=== PATIENT | female | born 1950 | race Caucasian/White ===

== ENCOUNTER → 2016-12-21 | Outpatient (CLI) | payer OTHER, MEDICARE ==
[~2016-12-21] MED LIST: FMR25 PO; LEVO100T7 PO
--- NOTE | 2016-12-21 12:44 | MAMMOGRAPHY REPORT ---
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 TECHNIQUE: Breast tomosynthesis in addition to standard 2D mammography was performed. Current study was also evaluated with a Computer Aided Detection (CAD) system. Right CC and MLO 2-D and tomosynt hesis images and spot magnification right cc and ML views were obtained. COMPARISON: Comparison is made to exams dated: 06/20/2016 mammogram, 06/06/2015 mammogram, 06/02/2014 ma mmogram, 06/01/2013 mammogram, and 06/03/2012 mammogram - [facility]. BREAST COMPOSITION: The tissue of the right breast is extremely dense, which lowers the sensitivity of mammography. FINDINGS: There are new post surgical changes in the right central breast, with new architectural d istortion and surgical clips noted at the lumpectomy bed. There is mild diffuse right breast skin t hickening, likely a sequela of radiation therapy. Scattered and clustered benign-appearing calcific ations in the right breast are stable compared to multiple prior exams. Small cluster of calcificat ions in the right upper outer quadrant lateral to the lumpectomy bed and small cluster of benign julianna earing calcifications in the right lower inner quadrant medial to the lumpectomy bed have been seen on prior exams dating back to 2009, and are considered benign given long-term stability. No new mas ses or suspicious clusters of micro calcifications are seen. Asymmetries in the right upper outer q uadrant posteriorly are also stable. IMPRESSION: ACR-BI-RADS CATEGORY 3: PROBABLY BENIGN Expected post treatment changes in the right breast, without mammographic evidence of malignancy in the right breast. Recommend bilateral diagnostic tomosynthesis mammograms in 6 months, to reevaluat e the right breast postsurgical changes and for routine mammography of the left breast. The patient has been verbally notified of the results. Approximately 10% of breast cancers are not detected with mammography. A negative mammographic repor t should not delay biopsy if a clinically suggestive mass is present. Jenise Fermin M.D. ah/:12/21/2016 10:44:06 Sales Office Assistant: Nenita MAZA)(Maryan), [facility] letter sent: Personal History 3 BI-RADS Code: ACR-BI-RADS Category 3: Probably Benign
== END | disposition home or self-care (01) ==
LOC: C.MAMM 08:36
PROVIDERS: ATTEND Radiology Radiation Oncology
DX: C50.911 Malignant neoplasm of unspecified site of right female breast (principal)

== ENCOUNTER → 2017-04-16 | Outpatient (CLI) | payer OTHER, MEDICARE ==
[2017-04-16 13:43] VITALS: BP_SYST 161; BP_SYST 198; BP_DIAS 141; BP_DIAS 90; PULSE 78; TEMP 37; O2SAT 98
--- NOTE | 2017-04-16 19:45 | Radiation Oncology Follow-Up ---
Radiation Oncology Follow-Up Date of Visit April 16, 2017. Reason For Visit The patient returns for regular scheduled 6 month follow-up visit. Radiation Completion Date 09/04/16 History of Present Illness Ms. Chowdary is a 66-year-old female without a family history of breast cancer. She has been followed with screening mammograms. In June 2015 screening mammograms were unremarkable. On 06/11/2016 the patient underwent bilateral digital screening mammogram with CAD. This showed a possible increasing cluster of microcalcifications at the 11:00 middle one third of the right breast. Additional spot magnification views were recommended. On 06/14/2016 patient underwent unilateral right digital diagnostic mammogram. This demonstrated a small, 3 mm cluster of punctate and round calcifications in the right upper outer quadrant. These calcifications appeared to have slightly increased compared to prior exams. The calcifications did appear similar to other Clusters seen within both breasts which is been stable. Although these calcifications were likely to be benign given the interval increase a stereotactic biopsy was recommended. This was given a BI-RADS Category 4A with low suspicion of malignancy. The patient agreed and was scheduled for a stereotactic biopsy of the right breast on 06/20/2016. This revealed a high-grade DCIS. Estrogen receptors were positive (100%, strong intensity). Progesterone receptors were positive ( greater than 95%, strong intensity). The DCIS measured up to 0.3 cm in greatest dimension. Case: [id number]. Patient was seen by Dr. Lambert Dykes. He discussed treatment options with the patient. The decision was made to proceed with breast conserving therapy. Therefore on 07/11/2016 patient underwent a right breast partial mastectomy and sentinel node biopsy. 2 sentinel nodes were identified and both were negative. The lumpectomy specimen revealed no residual DCIS. Additional right superior and inferior tissue were also negative for carcinoma. Case: [id number]. The final pathologic stage was therefore Tis pN0(sn-), ER positive and WA positive. Patient was seen by Dr. Lund for evaluation and discussion of the role of adjuvant systemic therapy. He recommended adjuvant antiestrogen therapy. We were also asked to see the patient in referral. She underwent a CT simulation was found to be a candidate for accelerated partial breast irradiation. Her treatment was completed 09/04/2016. She received 3850 cGy. She returned for a follow-up visit one month post treatment.She's been doing well over the past month. The irritation of the skin steadily resolved without difficulty. She had some dryness of the skin and hyperpigmentation following treatment. This steadily improved. For the dryness of the skin and she was given Aquaphor. She was seen by medical oncology and is now on Femara. She is tolerating this well and denies any side effects. Initially she had some problems with insomnia but this resolved. She is not having any problems with joint pains or arthralgias. She has been doing some painting and was concerned about small amount of arm swelling. This was reviewed and her prior measurements were compared. These are similar to previous. She has noticed no masses of the breast. She has no tenderness or change of the axilla. She is currently scheduled for her regular yearly screening mammogram. Interim History Patient was last seen on 10/16/2016. She started her Letrozole in mid to late September. She took it for approximately 4 months and stopped it on January 29. This was due to increasing symptoms. The symptoms have improved since stopping the medication. The patient notices occasional tightness in the right breast at the treatment location. She denies any breast soreness or tenderness. She denies any arm edema or swelling. She is scheduled for a repeat mammogram on 06/20/2006 17 and is scheduled to see Dr. Lund in follow-up on 06/21/2017. She has not yet notified Dr. Lund's office that she has stopped her medication. I've encouraged her to do that. Allergies Coded Allergies: Erythromycin (Verified Allergy, Unknown, HIVES, 08/02/16) Macrolides and Ketolides (Verified Allergy, Unknown, rash, 07/11/16) Tetracycline (Verified Allergy, Unknown, RASH/HIVES, 07/11/16) Home Medications Scheduled Levothyroxine Sodium (Levothyroxine Sodium), 1 TAB PO QAM Review of Systems Gastrointestinal: Symptoms: WNL Oral: Symptoms: No Problems Respiratory: Symptoms: WNL Other Respiratory: Currently Smoking --> 7-8cigs/day Urinary: Symptoms: WNL Skin: Symptoms: No Problems Other Skin Symptoms: Tightness of skin in AM's gets better as day goes on Breast: Right Upper Arm Measurement: 24.6 Right Mid Arm Measurement: 21.1 Right Wrist Measurement: 14.7 Left Upper Arm Measurement: 25.5 Left Mid Arm Measurement: 21.0 Left Wrist Measurement: 14.8 Arm Dominence: Right Physical Exam Vital Signs Date Time Temp Pulse Resp B/P Pulse Ox O2 Delivery O2 Flow Rate FiO2 04/16/17 13:43 37.0 78 18 198/90 98 161/141 General Appearance: WD/WN, no apparent distress Eyes: normal inspection ENT: normal ENT inspection Neck: supple, no adenopathy Respiratory/Chest: chest non-tender, lungs clear, normal breath sounds Breast: Breast examination shows a well-healed upper-outer quadrant incision in the right breast. There are no palpable masses no skin changes, specifically no skin edema and no pigment change. There are no palpable right breast tenderness. There is no right axillary adenopathy. Using the Vantage cosmesis score she has a good to excellent outcome. Left breast shows no palpable masses or skin changes or axillary adenopathy. Cardiovascular: regular rate, rhythm, no murmur Abdomen: non tender, soft Extremities: normal range of motion Neurologic/Psychiatric: alert, normal mood/affect, oriented x 3 Skin: normal color Lymphatic: no adenopathy Assessment & Plan This patient is now 6 months post treatment. She is scheduled to see Dr. Rohith Dempsey in June. We will see the patient in one year's time or sooner if requested. She is scheduled for a diagnostic mammogram on 06/20/2017. Total Time In Follow-Up I spent 15 minutes in discussion and examination with the patient and 5 minutes in preparation of this document. Copy To Lambert Dykes M.D.; Luis F Lund MD; Sandoval Trinh M.D.
== END | disposition home or self-care (01) ==
LOC: C.ONC 13:37
PROVIDERS: ATTEND Physician Assistant Medical
DX: Z08 Encounter for follow-up examination after completed treatment for malignant neoplasm (principal); Z92.3 Personal history of irradiation; Z85.3 Personal history of malignant neoplasm of breast; Z80.3 Family history of malignant neoplasm of breast

== ENCOUNTER → 2017-05-10 | Outpatient (CLI) | payer OTHER, MEDICARE ==
[~2017-05-10] MED LIST changes: -FMR25 PO
[2017-05-10 17:32] LABS: CHOLESTEROL/HDL RATIO 3.1
== END | disposition home or self-care (01) ==
LOC: C.LABBFT 11:02
PROVIDERS: ATTEND Physician Assistant Medical
DX: I10 Essential (primary) hypertension (principal)

== ENCOUNTER → 2017-06-14 | Outpatient (CLI) | payer OTHER, MEDICARE ==
[2017-06-14 16:38] LABS: BLOOD UREA NITROGEN 9 mg/dl (7-18); BUN/CREATININE RATIO 9.8 (10-20); CALCIUM 8.8 mg/dl (8.5-10.1); CARBON DIOXIDE 28 mmol/L (21-32); CHLORIDE 105 mmol/L (98-107); CREATININE 0.96 mg/dl (0.60-1.20); GLUCOSE 113 mg/dl (70-99); POTASSIUM 3.6 mmol/L (3.5-5.1); SODIUM 139 mmol/L (136-145)
== END | disposition home or self-care (01) ==
LOC: C.LABBFT 12:44
PROVIDERS: ATTEND Physician Assistant Medical
DX: E03.9 Hypothyroidism, unspecified (principal); I10 Essential (primary) hypertension

== ENCOUNTER → 2017-06-20 | Outpatient (CLI) | payer OTHER, MEDICARE ==
--- NOTE | 2017-06-20 15:42 | MAMMOGRAPHY REPORT ---
BILATERAL DIGITAL DIAGNOSTIC MAMMOGRAM TOMOSYNTHESIS WITH CAD: 06/20/2017 CLINICAL HISTORY: 67-year-old woman with a personal history of right breast DCIS status post breast c onservation therapy. She presents for second close follow-up after treatment and also time of annual bilateral screening exam. TECHNIQUE: Bilateral CC and MLO 2-D and tomosynthesis images, spot magnification right CC and ML view s were obtained. Current study was also evaluated with a Computer Aided Detection (CAD) system. COMPARISON: Comparison is made to exams dated: 12/21/2016 mammogram, 07/11/2016 specimen, 07/11/2016 lo calization, 06/20/2016 stereotactic biopsy, 06/20/2016 mammogram, and 06/14/2016 mammogram - [facility]. BREAST COMPOSITION: The tissue of both breasts is extremely dense, which lowers the sensitivity of m ammography. FINDINGS: Linear scar markers overlie each breast. There is expected architectural distortion in the upper outer anterior right breast, at the site of prior lumpectomy. 2 surgical clips remain in plac e. There is mild diffuse skin thickening and trabecular edema of the right breast. Stable nodular a symmetries in the right upper outer quadrant. On the spot magnification views of the right breast, t here are 2 tiny groupings of round and punctate microcalcifications located slightly lateral and medi al to the surgical clips on the CC view. These are stable comparing to the spot magnification views obtained 12/21/2016, and likely have been present on prior full-field views dating back to at least 2 014. However, repeat attention at follow-up in 6 months is recommended to ensure longer stability. There are other benign-appearing calcifications scattered bilaterally. No new focal area of architec tural distortion, spiculated or irregular mass or new calcifications are identified. IMPRESSION: ACR-BI-RADS CATEGORY 3: PROBABLY BENIGN 1. Expected post-therapeutic changes in the right breast, and stable mammographic appearance of the left breast, without definite mammographic evidence of malignancy. Recommend repeat diagnostic mammo grams and possible ultrasound of the right breast, to ensure longer stability after treatment. Routi ne mammography of the left breast in 12 months. 2. Given the extremely dense breasts and personal history of right breast cancer, would also recomme nd additional surveillance with bilateral breast MRI. These results and recommendations were discussed with the patient at the time of the exam. Approximately 10% of breast cancers are not detected with mammography. A negative mammographic report should not delay biopsy if a clinically suggestive mass is present. Shanae Lemus M.D. ay/:06/20/2017 14:10:24 Reed Repairer: Jade Mathews, [facility] letter sent: Follow Up Recommended 3 BI-RADS Code: ACR-BI-RADS Category 3: Probably Benign
== END | disposition home or self-care (01) ==
LOC: C.MAMM 10:28
PROVIDERS: ATTEND Physician Assistant Medical
DX: Z12.31 Encounter for screening mammogram for malignant neoplasm of breast (principal); N64.89 Other specified disorders of breast

== ENCOUNTER → 2017-07-01 | Outpatient (CLI) | payer OTHER, MEDICARE ==
[~2017-07-01] MED LIST changes: +GADAVIST IV PRN; +LIDO/EPINEPHRINE/SOD BICARB 20 ML VIAL INFIL ONE
--- NOTE | 2017-07-02 13:10 | MAMMOGRAPHY REPORT ---
BREAST MRI OF BOTH BREASTS : 07/01/2017 CLINICAL HISTORY: 67-year-old woman with a personal history of right breast DCIS status post breast c onservation treatment. Also history of prior left breast surgery. Extremely dense breasts, patient presents for additional screening. COMPARISON: Comparison is made to exams dated: 12/21/2016 mammogram, 07/11/2016 specimen, 07/11/2016 lo calization, 06/20/2016 stereotactic biopsy, 06/20/2016 mammogram, and 06/14/2016 mammogram - [facility]. TECHNIQUE: Using a 1.5 Fouzia magnet and dedicated breast coil, multisequence axial images were obtain ed through the breasts. After uneventful IV administration of 5.5 mL of Gadavist, dynamic multiphase contrast-enhanced axial images, and sagittal postcontrast were obtained. Temporal subtraction axial images and 3-D MIP images are provided. Everything was then reviewed on a 3-D workstation, [employer]. FINDINGS: Right breast: There are foci of susceptibility artifact, architectural distortion and skin irregulari ty in the 8:00 through 10:00 axes of the right breast, at the site of prior lumpectomy. There is min imal background parenchymal enhancement of the right breast. There is a vague 4 x 3 x 3 mm enhancing focus in the upper outer posterior right breast approximately 11:00 axis with associated plateau and washout kinetics, T2 hyperintense (axial page 47/116 and sagittal page 94/116). A similar appearing , slightly larger circumscribed ovoid enhancing focus in the 9:00 far posterior right breast measures 6 x 4 x 4 mm, demonstrating mixed persistent, plateau and washout kinetics. This is also T2 hyperin tense and best seen on axial page 63 and sagittal page 97. Although these enhancing foci could repre sent benign processes, given the personal history of right breast DCIS, further characterization with targeted second look ultrasound and possible ultrasound-guided core biopsy is recommended. A second ultrasound is unyielding, MRI guided biopsy of the larger focus in the 9:00 axis is recommended. No other suspicious enhancing mass, non-mass enhancement or unexpected architectural distortion is seen in the right breast. There is mild diffuse skin thickening, likely related to prior treatment. No suspicious right axillary, subpectoral or internal mammary lymphadenopathy. Left breast: There are foci of susceptibility artifact in the 3:00 to 4:00 posterior left breast, den oting an area of prior surgery. There is minimal background parenchymal enhancement and mild benign duct ectasia. No suspicious enhancing mass, non-mass enhancement, architectural distortion or suspic ious kinetics are seen in the left breast. There is no skin thickening or nipple retraction. No shashi picious left axillary, subpectoral or intramammary lymphadenopathy. Other: Although the exam is not optimized to evaluate thoracic structures, the ascending thoracic aor ta appears prominent in size, and measures up to 3.7 mm. In retrospect, comparing to a CT scan perfo rmed prior to radiation therapy dated 08/08/2016 also measures slightly prominent in size. Consider dedicated aortic evaluation with an echocardiogram. IMPRESSION: ACR BI-RADS CATEGORY 4B: INTERMEDIATE SUSPICION FOR MALIGNANCY 1. There are 2 enhancing foci in the posterior right breast approximately 9:00 and 11:00 axes, measu ring 6 and 4 mm, respectively. Targeted second look ultrasound with possible ultrasound-guided core biopsy is recommended. If second look ultrasound is unyielding, MRI guided biopsy of the larger focu s in the 9:00 axis is recommended (45 minutes). 2. Otherwise there are expected post treatment changes in the right breast, without evidence of susp icious axillary lymphadenopathy. 3. No MRI evidence of malignancy in the left breast. 4. Mildly prominent ascending thoracic aorta measuring up to 3.7 cm. As this exam is not optimized to evaluate intrathoracic structures, measurements may not be completely accurate. Consider more def initive evaluation with an aortic/cardiac echo. The patient will be called to schedule an appointment. Shanae Lemus M.D. ay/:07/01/2017 17:03:03 Prisoner Classification Interviewer: flat lock operator, [facility] letter sent: Abnormal 4/5 BI-RADS Code: ACR BI-RADS Category 4B: Intermediate Suspicion For Malignancy
== END | disposition home or self-care (01) ==
LOC: C.MRI 13:40
PROVIDERS: ATTEND Physician Assistant Medical
DX: D05.11 Intraductal carcinoma in situ of right breast (principal); R92.8 Other abnormal and inconclusive findings on diagnostic imaging of breast; R93.8 Abnormal findings on diagnostic imaging of other specified body structures

== ENCOUNTER → 2017-07-10 | Outpatient (CLI) | payer OTHER, MEDICARE ==
[~2017-07-10] MED LIST changes: -GADAVIST IV PRN; -LIDO/EPINEPHRINE/SOD BICARB 20 ML VIAL INFIL ONE
--- NOTE | 2017-07-10 15:19 | MAMMOGRAPHY REPORT ---
ULTRASOUND OF RIGHT BREAST: 07/10/2017 CLINICAL HISTORY: 67 year old woman with a personal history of right breast DCIS diagnosed in June 20, status post breast conservation therapy. She recently presented for a breast MRI for additional screening and was found to have 2 subcentimeter enhancing foci/masses in the far posterior 9:00 and 1 1:00 axes of the right breast. She presents for targeted second ultrasound, possible ultrasound guid ed core biopsy. COMPARISON: Comparison is made to exams dated: 12/21/2016 mammogram, 07/11/2016 specimen, 07/11/2016 lo calization, 06/20/2016 stereotactic biopsy, 06/20/2016 mammogram, and 06/11/2016 mammogram - [facility]. FINDINGS: Real-time high-resolution sonographic evaluation was performed in the right breast with par ticular attention to the 9:00 and 11:00 as well as retroareolar axis of the breast. In the 9:[address] periareolar region, angular hypoechoic scar tissue is identified, denoting the site of prior lumpe ctomy. Deep to the scar, there is no evidence of a discrete mass to correlate with the 6 mm enhancin g focus/mass seen on the recent breast MRI. Likewise, no discrete solid or cystic mass is seen in th e 11:00 right breast to correspond to the smaller 4 mm enhancing focus seen on MRI. These enhancing foci/masses remain indeterminate and further evaluation with an MRI guided biopsy is recommended. Can attempt a biopsy of both lesions, although the smaller 4 mm lesion may not be david ble to MRI guided biopsy given the far posterior location close to pectoralis muscle. These new recommendations were discussed with the patient at the time of second look ultrasound on . She tentatively scheduled the MRI guided biopsy/biopsies prior to leaving our department. IMPRESSION: ACR BI-RADS CATEGORY 4B: INTERMEDIATE SUSPICION FOR MALIGNANCY - FOLLOW-UP RECOMMENDED 1. Targeted second look ultrasound in the right 9:00 and 11:00 axes fails to demonstrate a sonograph ic correlate for the small enhancing 6 mm and 4 mm foci identified on recent MRI. Therefore these fi ndings remain indeterminate and further evaluation with an MRI guided biopsy is recommended. Biopsy of both lesions can be attempted but there is a possibility the smaller focus in the 11:00 far template layout worker ior breast may not be amenable to MRI guided biopsy. These results and recommendations were discussed with the patient at the time of the exam. She tenta tively scheduled the MRI biopsy prior to leaving our department. Shanae Lemus M.D. ay/:07/10/2017 12:49:59 Shell Mold Bonding Machine Operator: Dr. Shanae Lemus, [facility] letter sent: Abnormal 4/5 BI-RADS Code: ACR BI-RADS Category 4B: Intermediate Suspicion For Malignancy
== END | disposition home or self-care (01) ==
LOC: C.MAMM 10:45
PROVIDERS: ATTEND Physician Assistant Medical
DX: Z85.3 Personal history of malignant neoplasm of breast (principal); R92.8 Other abnormal and inconclusive findings on diagnostic imaging of breast

== ENCOUNTER → 2017-07-17 | Outpatient (CLI) | payer OTHER, MEDICARE ==
[~2017-07-17] MED LIST changes: +LIDO/EPINEPHRINE/SOD BICARB 20 ML VIAL INFIL ONE; +XYLOCAINE 1%/SOD BICARB 20 ML VIAL INFIL ONE
--- NOTE | 2017-07-17 12:07 | Discharge Instructions ---
Discharge Instructions Procedure Procedure Date: Jul 17, 2017. Reason for visit: Right 2 Enhancing Masses. Discharge Discharge Date: Jul 17, 2017. Discharge Diagnosis: status post breast biopsy Instructions Activity Recommendations: Additional Limitations (see below) Return to School/Work: no limitations Recommended Home Diet: No Limitations Provider Instructions: ACTIVITY RECOMMENDATIONS: * No lifting, pushing, pulling or exercising the affected side for three days. RETURN TO SCHOOL/WORK: * You may return to work/school after the procedure, but do not perform any strenuous activities for 24 to 48 hours. MEDICATIONS: * Tylenol (two 325 mg) every four to six hours if needed for mild pain (if not allergic to Tylenol). DIET: * Resume previous diet. SPECIAL CARE INSTRUCTIONS: * Keep biopsy site dry for 24 hours. May shower after 24 hours, but do not soak (bathe) incision. * May remove Tegaderm (plastic patch) tomorrow AFTER showering. * Leave the steri-strips on for one week. Allow the steri-strips to fall off by themselves. If not off after one week, you may remove them. You may place a Bandaid crosswise over the strips, if desired. * Apply ice 10 minutes on and 10 minutes off as needed. * Wear a bra at bedtime to sleep more comfortably for 2-3 days. * Your referring physician should have the results after approximately 5 to 7 business days. * Call for unusual bleeding, fever, drainage, etc or if you have any questions call during normal business hours or after hours call Dr Fermin, . FOLLOW UP VISIT: Follow-up with Referring Physician as scheduled. Allergies Coded Allergies: Erythromycin (Verified Allergy, Unknown, HIVES, 08/02/16) Macrolides and Ketolides (Verified Allergy, Unknown, rash, 07/11/16) Tetracycline (Verified Allergy, Unknown, RASH/HIVES, 07/11/16) Luli Means Recommendations: Call your doctor if: * Temperature above 101 degrees * Pain not relieved by pain medicine ordered * There is increased drainage or redness from any incision * You have any unanswered questions or concerns. Your Doctors Instructions noted above were prepared by provider Jenise Fermin. Patient Signature Section: Patient Instructions Signature Page Martita Chowdary Patient (or Guardian) Signature/Date: I have read and understand the instructions given to me by my caregivers. Caregiver/RN/Doctor Signature/Date: The above-named patient and/or guardian has received patient instructions on this date. + Original Patient Signature Page (only) stays with chart. Please make copy for patient.
--- NOTE | 2017-07-17 15:18 | MAMMOGRAPHY REPORT ---
THIS REPORT HAS BEEN AMENDED. MULTIPLE MRI BIOPSIES RIGHT BREAST: 07/17/2017 CLINICAL HISTORY: Two enhancing foci in the right 9 and 11:00 breast on recent breast MRI, for which biopsy was recommended. COMPARISON: Comparison is made to exams dated: 07/10/2017 ultrasound, 07/01/2017 breast MRI, 06/20/2017 mammogram, 12/21/2016 mammogram, and 06/20/2016 mammogram - [facility]. Technique: Written informed consent was obtained from the patient after discussion of the procedure a s well as risks of MRI guided core needle biopsy. A preprocedural timeout was performed prior to sta rting the procedure. The patient was placed prone on a 1.5 Fouzia MR scanner. The lateral aspect of the right breast was c leansed with ChloraPrep. The right breast was positioned in a dedicated breast coil and MRI guidance grid device. After localizing sequences were obtained, pre-and postcontrast axial sequences were performed which c onfirm the persistence of the enhancing foci in the right 9 and 11:00 breast. 5.5 cc of Gadavist IV contrast was administered. Using the images, targeting was performed using the i-marker software. The skin was prepped with Betadine through the grid and after local anesthesia was achieved, an intro ducer sheath and localizing obturator were placed into both sites using a lateral approach. The locat ion of the obturator sheaths were confirmed with additional images. Subsequently, multiple samples were obtained from both sites using Video Blocks 9-gauge vacuum-assisted core biopsy devices. Through the introducer sheaths, marker clips were placed. Postprocedural images de monstrate postbiopsy changes in the expected locations of the enhancing lesions. Direct pressure was held at the biopsy sites until hemostasis was achieved. The patient tolerated the procedure without immediate complication. Mammography was obtained at the breast center after completion of the biopsy to confirm marker clip placement. Please see the separa te dictation of the exam for further details. The specimens were sent to pathology for analysis; the biopsy specimens from biopsy of the right 9:00 breast are labeled "A " and the biopsy specimens from biopsy of the right 11:00 breast are labeled "B ". Wound care instructions were given to the clarisse pham. IMPRESSION: MRI BIOPSY MRI guided core needle biopsy of the enhancing focus in the right 9:00 breast (site "A") and enhancin g focus in the right 11:00 breast (site "B"), with clip placement. The patient will receive patholog y results from her referring provider. Pending benign pathology results, recommend follow-up bilater al breast MRI in 6 months. Jenise Fermin M.D. ah/:07/17/2017 12:51:26 Senior Engineering Team Leader: sergeant of officers, [facility] AMENDMENT: 07/24/2017 Jenise Fermin M.D. Pathology from MRI guided right breast biopsies were reviewed on 07/24/2017. Pathology of the right 9 :00 biopsy shows a small fibroadenoma with rare microcalcifications and atrophic-appearing breast tis vilma with scattered microcalcifications. Pathology of the right 11:00 biopsy shows atrophic-appearing breast tissue with increased stromal fibrosis. Findings are benign and concordant with the imaging appearance. Recommend follow-up bilateral breast MRI in 6 months.
--- NOTE | 2017-07-17 15:20 | MAMMOGRAPHY REPORT ---
UNILATERAL RIGHT DIGITAL DIAGNOSTIC MAMMOGRAM: 07/17/2017 CLINICAL HISTORY: Status post MRI guided biopsy of 2 enhancing foci in the right 9:00 and 11:00 breas t. TECHNIQUE: Postprocedural right CC and ML views were obtained. COMPARISON: Comparison is made to exams dated: 07/17/2017 MRI biopsy, 07/10/2017 ultrasound, and 017 breast MRI - [facility]. BREAST COMPOSITION: The tissue of the right breast is heterogeneously dense, which may obscure small masses. FINDINGS: A new dumbbell-shaped biopsy marker clip is seen in the expected location of the biopsied enhancing focus in the right 9:00 breast. Another biopsy marker clip is seen in the expected locatio n of the biopsied enhancing focus in the right 11:00 breast. No significant postbiopsy hematoma is s een. IMPRESSION: POST PROCEDURE IMAGING FOR MARKER PLACEMENT New biopsy marker clips status post MRI guided biopsy 2 of the right breast. Pathology results are pending. Approximately 10% of breast cancers are not detected with mammography. A negative mammographic report should not delay biopsy if a clinically suggestive mass is present. Jenise Fermin M.D. /:07/17/2017 12:45:55 High Speed Operator: Nenita BIGGS(Jaden)(Maryan), [facility] BI-RADS Code: Post Procedure Imaging For Marker Placement
== END | disposition home or self-care (01) ==
LOC: C.MRI 10:11
PROVIDERS: ATTEND Physician Assistant Medical
DX: R92.0 Mammographic microcalcification found on diagnostic imaging of breast (principal); N63 Unspecified lump in breast

== ENCOUNTER → 2017-07-18 | Outpatient (CLI) | payer OTHER, MEDICARE ==
[~2017-07-18] MED LIST changes: -LIDO/EPINEPHRINE/SOD BICARB 20 ML VIAL INFIL ONE; -XYLOCAINE 1%/SOD BICARB 20 ML VIAL INFIL ONE
--- NOTE | 2017-07-18 19:15 | ECHOCARDIOGRAM REPORT ---
*NOTICE TO RECEIVING [employer] This information is strictly Confidential and protected under [place] law. [place] law prohibits you from making any further disclosure of this information unless further disclosure is expressly permitted by the written consent of the person to whom it pertains or is authorized by law. A general authorization for the release of medical or other information is not sufficient for this purpose. Hospital accepts no responsibility if the information is made available to any other person, INCLUDING THE PATIENT. Interpretation Summary * Name: MILLER ALEXANDER Study Date: 07/18/2017 12:56 PM BP: 193/81 mmHg * Patient Location: [facility] HR: 57 * : 1950 (M/d/yyyy) Gender: Female Height: 62 in * Age: 67 yrs Ethnicity: [place] Weight: 122 lb * Ordering Physician: Ines Acevedo * Referring Physician: Ines Acevedo PA-C * Performed By: Jane Gerardo RDCS * * Reason For Study: NEOPLASM, AORTA EVALUATION * BSA: 1.5 m2 * -- Conclusions -- * 1. Normal LV size, mild concentric LVH. * 2. Normal LV systolic function. LVEF 60-65%. No regional wall motion abnormlaities. * 3. Normal RV size and function. * 4. No significant valvular pathology. * 5. Normal aortic root. Ascending aorta/aortic arch not well visualized. * 6. No prior studies for comparison. Procedure Details * A complete two-dimensional transthoracic echocardiogram was performed (2D, M-mode, Doppler and color flow Doppler). Left Ventricle * The left ventricle is grossly normal size. * There is mild concentric left ventricular hypertrophy. * Ejection Fraction = 55-60%. * No regional wall motion abnormalities noted. Right Ventricle * The right ventricle is grossly normal size. * The right ventricular systolic function is normal as assessed by tricuspid annular plane systolic excursion (TAPSE) (normal >1.5 cm). Atria * The left atrial size is normal. * Borderline right atrial enlargement. * No ASD detected; PFO is not assessed. Mitral Valve * The mitral valve is grossly normal. * There is no mitral valve stenosis. * Significant mitral regurgitation is absent. Tricuspid Valve * The tricuspid valve is not well visualized, but is grossly normal. * There is no tricuspid stenosis. * There is trace tricuspid regurgitation. Aortic Valve * The aortic valve opens well. * The aortic valve is trileaflet. * No hemodynamically significant valvular aortic stenosis. * There is no significant aortic regurgitation. Pulmonic Valve * The pulmonary valve is inadequately visualized, but the Doppler data is adequate for interpretation. * There is no pulmonic valvular stenosis. * There is no significant pulmonary regurgitation. Great Vessels * The aortic root and proximal ascending aorta are normal sized. Pericardium/Pleural * There is no pericardial effusion. Great Vessels * Normal inferior vena cava size and collapsability with sniff indicates a normal right atrial pressure of 3 mmHg MMode 2D Measurements and Calculations IVSd 1.3 cm IVSs 1.7 cm LVIDd 3.9 cm LVIDs 2.8 cm LVPWd 1.1 cm LVPWs 1.3 cm IVS/LVPW 1.2 FS 29.1 % EDV(Teich) 66.0 ml ESV(Teich) 28.7 ml EF(Teich) 56.5 % EDV(cubed) 59.4 ml ESV(cubed) 21.2 ml EF(cubed) 64.3 % % IVS thick 29.3 % % LVPW thick 24.6 % LV mass(C)d 158.2 grams LV mass(C)dI 102.1 grams/m\S\2 LV mass(C)s 145.6 grams LV mass(C)sI 94.0 grams/m\S\2 SV(Teich) 37.3 ml SI(Teich) 24.1 ml/m\S\2 SV(cubed) 38.2 ml SI(cubed) 24.7 ml/m\S\2 Ao root diam 3.5 cm Ao root area 9.6 cm\S\2 LA dimension 3.4 cm LA/Ao 0.99 LVAd ap4 22.0 cm\S\2 LVLd ap4 7.6 cm EDV(MOD-sp4) 54.0 ml EDV(sp4-el) 54.4 ml LVAs ap4 11.7 cm\S\2 LVLs ap4 6.2 cm ESV(MOD-sp4) 18.8 ml ESV(sp4-el) 18.8 ml EF(MOD-sp4) 65.3 % EF(sp4-el) 65.5 % LVAd ap2 26.2 cm\S\2 LVLd ap2 7.8 cm EDV(MOD-sp2) 73.8 ml EDV(sp2-el) 75.0 ml LVAs ap2 16.7 cm\S\2 LVLs ap2 7.1 cm ESV(MOD-sp2) 33.2 ml ESV(sp2-el) 33.4 ml EF(MOD-sp2) 54.9 % EF(sp2-el) 55.4 % LVLd %diff 2.5 % EDV(MOD-bp) 64.5 ml LVLs %diff 12.3 % ESV(MOD-bp) 27.0 ml EF(MOD-bp) 58.1 % SV(MOD-sp4) 35.2 ml SI(MOD-sp4) 22.7 ml/m\S\2 SV(MOD-sp2) 40.5 ml SI(MOD-sp2) 26.2 ml/m\S\2 SV(MOD-bp) 37.4 ml SI(MOD-bp) 24.2 ml/m\S\2 SV(sp4-el) 35.6 ml SI(sp4-el) 23.0 ml/m\S\2 SV(sp2-el) 41.6 ml SI(sp2-el) 26.8 ml/m\S\2 Doppler Measurements and Calculations Ao V2 max 121.3 cm/sec Ao max PG 5.9 mmHg Ao max PG (full) 3.5 mmHg LV V1 max PG 2.4 mmHg LV V1 max 77.4 cm/sec TR max sudhir 223.9 cm/sec
== END | disposition home or self-care (01) ==
LOC: C.CPL 12:36
PROVIDERS: ATTEND Physician Assistant Medical
DX: D05.11 Intraductal carcinoma in situ of right breast (principal); R93.8 Abnormal findings on diagnostic imaging of other specified body structures

== ENCOUNTER → 2017-08-01 | Outpatient (CLI) | payer OTHER, MEDICARE | END | disposition home or self-care (01) | LOC: C.LABBFT 11:05 | PROVIDERS: ATTEND Physician Assistant Medical | DX: E03.9 Hypothyroidism, unspecified (principal) ==

== ENCOUNTER → 2017-12-23 | Outpatient (CLI) | payer OTHER, MEDICARE ==
--- NOTE | 2017-12-23 14:42 | MAMMOGRAPHY REPORT ---
UNILATERAL RIGHT DIGITAL DIAGNOSTIC MAMMOGRAM TOMOSYNTHESIS WITH CAD: 12/23/2017 CLINICAL HISTORY: 67-year-old woman with a personal history of right breast cancer status post breast conservation treatment presents for a close follow-up in the right breast. She recently underwent M RI guided biopsy 2 in the right breast for enhancing foci and both biopsied areas yielded benign pat hology results. TECHNIQUE: Right breast tomosynthesis in addition to standard 2D mammography was performed. Spot mag nification right CC and ML views were obtained. Current study was also evaluated with a Computer Aid ed Detection (CAD) system. COMPARISON: Comparison is made to exams dated: 07/17/2017 mammogram, 07/17/2017 MRI biopsy, 07/10/2017 u ltrasound, 07/01/2017 breast MRI, 06/20/2017 mammogram, and 12/21/2016 mammogram - [facility]. BREAST COMPOSITION: The tissue of the right breast is extremely dense, which lowers the sensitivity of mammography. FINDINGS: There is expected architectural distortion and 2 surgical clips in the 11:00 to 12:00 anter ior right breast, denoting the site of prior lumpectomy. There are 2 stable metallic biopsy marker i s in the upper outer middle to posterior right breast, denoting the areas of recent benign MRI guided biopsies. There are numerous benign rim calcifications scattered in the right breast. The spot mag nification views redemonstrate 2 small groupings of round and punctate microcalcifications just media l and lateral to the surgical clips that are stable comparing to prior spot magnification views inclu ding 06/20/2017, 12/21/2016 and also on the spot magnification views performed prior to surgery dated 06/14/2016. These additional calcifications are most likely benign but repeat assessment at follow- up is recommended to ensure longer stability. No obvious new mass, unexpected architectural distorti on or new calcifications are seen in the right breast. IMPRESSION: ACR-BI-RADS CATEGORY 3: PROBABLY BENIGN 1. Stable mammographic appearance of the right breast including postsurgical/posttreatment changes, and 2 stable small groupings of round and punctate microcalcifications located medial and lateral to the surgical clips in the CC projection. Another six-month follow-up right diagnostic mammogram incl uding spot magnification views is recommended to ensure longer stability after treatment and longer s tability of the benign-appearing microcalcifications. Annual left mammography will also be due at at time. 2. The patient is also currently due for a follow-up breast MRI to ensure stability and adequate pepe pling from the MRI guided biopsy which was performed in July 2017. These results and recommendations were discussed with the patient at the time of the exam. She tenta tively scheduled the breast MRI and follow-up diagnostic appointment prior to leaving our department. Approximately 10% of breast cancers are not detected with mammography. A negative mammographic report should not delay biopsy if a clinically suggestive mass is present. Shanae Lemus M.D. ay/:12/23/2017 11:16:50 Budget Report Clerk: Jade Mathews, [facility] letter sent: Follow Up Recommended 3 BI-RADS Code: ACR-BI-RADS Category 3: Probably Benign
== END | disposition home or self-care (01) ==
LOC: C.MAMM 10:20
PROVIDERS: ATTEND Physician Assistant Medical
DX: Z08 Encounter for follow-up examination after completed treatment for malignant neoplasm (principal); Z85.3 Personal history of malignant neoplasm of breast; R92.0 Mammographic microcalcification found on diagnostic imaging of breast

== ENCOUNTER → 2017-12-25 | Outpatient (CLI) | payer OTHER, MEDICARE ==
[2017-12-25 17:55] LABS: BLOOD UREA NITROGEN 19 mg/dl (7-18); CREATININE 0.88 mg/dl (0.60-1.20)
== END | disposition home or self-care (01) ==
LOC: C.LABBFT 13:27
PROVIDERS: ATTEND Physician Assistant Medical
DX: Z01.812 Encounter for preprocedural laboratory examination (principal)

== ENCOUNTER → 2017-12-31 | Outpatient (CLI) | payer OTHER, MEDICARE ==
[~2017-12-31] MED LIST changes: +GADAVIST IV PRN
--- NOTE | 2018-01-01 15:24 | MAMMOGRAPHY REPORT ---
BREAST MRI OF BOTH BREASTS : 12/31/2017 CLINICAL HISTORY: History of right breast cancer status post lumpectomy July 2016. She also underw ent 2 MRI guided biopsies of the right breast July 2017 which yielded benign pathology. Also remot e left lumpectomy. COMPARISON: Comparison is made to exams dated: 12/23/2017 mammogram, 07/17/2017 mammogram, 07/17/2017 M RI biopsy, 07/10/2017 ultrasound, 07/01/2017 breast MRI, and 06/20/2017 mammogram - [facility]. Technique: The patient was placed prone in a dedicated breast imaging coil. Precontrast axial T1-dulce maria ghted, axial T2-weighted fat saturation, and axial T1-weighted fat saturation images were obtained. After the administration of 5 mL of Gadavist IV contrast, sequential T1-weighted fat saturation image s were obtained. Subtraction images were obtained of the dynamic contrast enhanced sequences, and 3- D reformations were performed. The Filmaster software was used for kinetic analysis. Findings: Right breast: There is minimal background parenchymal enhancement involving the right breast. There are expected p ost surgical changes in the right breast at approximately 9:00 from prior lumpectomy. Again noted is mild right breast skin thickening, likely due to prior radiation therapy. 2 areas of clip artifact are noted in the right upper outer quadrant related to biopsy marker clips from prior benign MRI guid ed biopsies. The 2 previously seen areas of enhancement in the right upper outer quadrant are no jamilah harpal evident; given the benign pathology on biopsy and given that the findings are no longer evident, they are benign. There is a small 5 mm focal area of enhancement within the right lower outer quadra nt far posteriorly, which demonstrates corresponding T2 hyperintensity and a mixed plateau and persis tent kinetic pattern (series 86342 image 83, series 6 image 100). This does not appear significantly changed compared to the June 2017 exam when accounting for slight differences in positioning, and al so appears similar to the 2 biopsied right breast lesions which yielded benign pathology. The findin g is probably benign and another short follow-up is recommended to confirm longer stability. There a re no new or suspicious enhancing masses or areas of abnormal non-mass enhancement. Left breast: There is mild background parenchymal enhancement. There are stable postsurgical changes in the left breast. Small enhancing foci are seen scattered throughout the left breast, not signifi cantly changed compared to the prior MRI exam and are felt to represent normal background parenchymal enhancement. No new or suspicious enhancing masses or areas of abnormal non-mass enhancement are no eduardo within the left breast. There is no evidence of axillary adenopathy. The chest wall structures are negative. There is stabl e prominence of the ascending aorta, as described on the prior MRI report. The remainder of the visu alized extramammary soft tissues are grossly unremarkable. IMPRESSION: ACR-BI-RADS CATEGORY 3: PROBABLY BENIGN 1. The two biopsied enhancing lesions in the right upper outer quadrant are no longer evident. Given that they are no longer evident and given the benign pathology on biopsy, the findings are benign. 2. Enhancing 5 mm lesion in the right lower outer quadrant posteriorly, which is not significantly c hanged compared to the June 2017 exam and appears similar to the 2 previously biopsied benign right b reast lesions. The finding is probably benign and recommend another short interval follow-up bilater al breast MRI in 6 months to reevaluate. 3. No MRI evidence of malignancy in the left breast. Jenise Fermin M.D. ah/:12/31/2017 16:54:08 Manager Protein: sybase developer, [facility] letter sent: Follow Up Recommended 3 BI-RADS Code: ACR-BI-RADS Category 3: Probably Benign
== END | disposition home or self-care (01) ==
LOC: C.MRI 11:11
PROVIDERS: ATTEND Physician Assistant Medical
DX: D05.11 Intraductal carcinoma in situ of right breast (principal)

== ENCOUNTER → 2018-06-30 | Outpatient (CLI) | payer OTHER, MEDICARE ==
[~2018-06-30] MED LIST changes: -GADAVIST IV PRN; +LOSA1TAB PO
--- NOTE | 2018-06-30 15:42 | MAMMOGRAPHY REPORT ---
BILATERAL DIGITAL DIAGNOSTIC MAMMOGRAM TOMOSYNTHESIS WITH CAD: 06/30/2018 CLINICAL HISTORY: 68-year-old woman with a personal history of right breast cancer status post lumpec brad in July 2016. Also remote left breast surgery. She underwent MRI guided biopsy 2 in the right breast in July 2017, which yielded benign pathology results. She presents at time of annual mammog emily, approximately 2 years after treatment. TECHNIQUE: Bilateral CC and MLO 2D and tomosynthesis images, spot magnification right CC and ML views were obtained. Current study was also evaluated with a Computer Aided Detection (CAD) system. COMPARISON: Comparison is made to exams dated: 12/23/2017 mammogram, 07/17/2017 mammogram, 06/20/2017 m ammogram, 12/21/2016 mammogram, 06/20/2016 mammogram, and 06/14/2016 mammogram - [facility]. BREAST COMPOSITION: The tissue of both breasts is extremely dense, which lowers the sensitivity of ma mmography. FINDINGS: Linear scar markers overlie the upper outer quadrant of each breast and the right axilla. There is expected architectural distortion and surgical clips in the upper outer middle to anterior r ight breast, at the site of prior lumpectomy. Spot magnification views performed over the right surg ical site demonstrate numerous benign rim calcifications and stable groupings of punctate microcalcif ications both medial and lateral to the surgical site, that appear similar dating back to at least , and likely stable comparing back to pre-treatment mammograms given differences in breast arc hitecture. No new suspicious clustered calcifications, unexpected architectural distortion, asymmetr ies or masses are seen bilaterally. There are stable groupings of punctate calcifications in the med ial left breast. The patient is also due for another follow-up breast MRI in July 2018, which she reports that she i s already scheduled for. No suspicious mass, architectural distortion or cluster of microcalcifications is seen. IMPRESSION: ACR BI-RADS CATEGORY 2: BENIGN 1. Stable mammographic appearance of the breasts including postsurgical changes in both breasts and posttreatment changes in the right breast, without mammographic evidence of malignancy. There are al so stable groupings of punctate calcifications in both breasts. Bilateral mammography is recommended in 1 year, and would recommend remaining a diagnostic patient, given the personal history of breast cancer and extremely dense breasts, in case any additional mammographic views and/or ultrasound may b e needed. 2. The patient is also due for a follow-up breast MRI in July 2019. These results and recommendations were discussed with the patient at the time of the exam. Some breast cancers are not detected with mammography. A negative mammographic report should not lise y biopsy if a clinically suggestive mass is present. Shanae Lemus M.D. ay/:06/30/2018 14:35:17 Telephony Engineer: RT Carter(Jaden)(M), [facility] letter sent: Normal 1/2 BI-RADS Code: ACR BI-RADS Category 2: Benign
== END | disposition home or self-care (01) ==
LOC: C.MAMM 10:29
PROVIDERS: ATTEND Physician Assistant Medical
DX: Z85.3 Personal history of malignant neoplasm of breast (principal); Z08 Encounter for follow-up examination after completed treatment for malignant neoplasm

== ENCOUNTER → 2018-07-09 | Outpatient (CLI) | payer OTHER, MEDICARE ==
[2018-07-09 17:46] LABS: BLOOD UREA NITROGEN 15 mg/dl (7-18); CREATININE 0.95 mg/dl (0.60-1.20)
== END | disposition home or self-care (01) ==
LOC: C.LABBFT 11:12
PROVIDERS: ATTEND Physician Assistant Medical
DX: Z01.812 Encounter for preprocedural laboratory examination (principal)

== ENCOUNTER → 2018-07-15 | Outpatient (CLI) | payer OTHER, MEDICARE ==
[~2018-07-15] MED LIST changes: +GADAVIST IV PRN
--- NOTE | 2018-07-16 13:51 | MAMMOGRAPHY REPORT ---
BREAST MRI OF BOTH BREASTS: 07/15/2018 CLINICAL HISTORY: 62-year-old woman with a personal history of right breast cancer status post lumpec brad in July 2016, with radiation therapy. She underwent to MRI guided biopsies of the right breast in July 2017 which yielded benign pathology results. Also remote left lumpectomy. COMPARISON: Prior breast MRIs dated 07/01/2017, 12/31/2017, MRI guided biopsy dated 07/17/2017, diagnost ic mammograms dated 06/30/2018, 12/23/2017, 06/20/2017, 12/21/2016. TECHNIQUE: Using a 1.5 Fouzia magnet and dedicated breast coil, multisequence axial images were obtain ed through the breasts. After uneventful IV administration of 5 mL of Gadavist, dynamic multiphase c ontrast-enhanced axial images, and sagittal postcontrast were obtained. Temporal subtraction axial i mages and 3-D MIP images are provided. Everything was then reviewed on a 3-D workstation, [id number]. FINDINGS: Right breast: There is mild background parenchymal enhancement of the right breast. There are stable postsurgical changes with expected architectural distortion in the right upper outer quadrant anteri jolene. Susceptibility artifact from 2 biopsy marker clips are identified in the right upper outer asia drant posteriorly. There is a 4 mm focus of enhancement in the lower outer posterior right breast ( axial page 71/116) that is decreased in size and prominence on the axial images comparing to the [facility] MRI dated 12/31/2017. This is no longer identified in the sagittal plane. Given decreased promine nce and similar appearance to previously biopsied benign enhancing foci in the right breast, this is considered benign. No new suspicious enhancing mass, non-mass enhancement or suspicious kinetics nilsa ntified in the right breast. There is mild persistent diffuse trabecular edema, likely due to prior treatment. No suspicious right axillary, subpectoral or internal mammary lymphadenopathy. Left breast: There is minimal background parenchymal enhancement of the left breast. The few scatter ed enhancing foci are stable comparing to prior breast MRIs. No suspicious masses, non-mass enhancem ent or suspicious kinetics identified in the left breast. No skin thickening or nipple retraction. No suspicious left axillary, subpectoral or internal mammary lymphadenopathy. Again noted is mild prominence of the ascending thoracic aorta. IMPRESSION: ACR BI-RADS CATEGORY 2: BENIGN 1. Decreased prominence of a focus of enhancement in the lower outer posterior right breast, confirm ing benignity. 2. No MRI evidence of malignancy in the breasts. Recommend continuation of annual screening mammogr aphy and breast MRI for additional surveillance. The patient will receive written notification of the results. Shanae Lemus M.D. ay/:07/15/2018 23:10:52 Manager Group Home: certified indoor environmentalist, [facility] letter sent: Normal 1/2 BI-RADS Code: ACR BI-RADS Category 2: Benign
== END | disposition home or self-care (01) ==
LOC: C.MRI 11:11
PROVIDERS: ATTEND Physician Assistant Medical
DX: Z85.3 Personal history of malignant neoplasm of breast (principal); Z08 Encounter for follow-up examination after completed treatment for malignant neoplasm